=== PATIENT | male | born 1980 | race African-American/Black ===

== ENCOUNTER 2019-02-05 22:50 | Emergency (ER) | payer SELFPAY ==
[2019-02-05] MEDS ORDERED: TETANUS & DIPHTHERIA TOX,ADULT 0.5 ML VIAL ONE (23:17)
--- NOTE | 2019-02-05 23:18 | ER ---
Nurse's Notes [facility] Name: Justice Coy Age: 38 yrs Sex: Male : 1980 Arrival Date: 02/05/2019 Time: 22:53 Bed 14 Private MD: Diagnosis: Puncture wound without foreign body of foot Presentation: 02/05 22:56 Presenting complaint: Patient states: last 2018 , i was trying a boot \[employer] store when something punctured my left foot. Transition of care: patient was not received from another setting of care. Onset of symptoms was February 03, 2019. Risk Assessment: Do you want to hurt yourself or someone else? Patient reports no desire to harm self or others. Initial Sepsis Screen: Does the patient meet any 2 criteria? No. Patient's initial sepsis screen is negative. Does the patient have a suspected source of infection? No. Patient's initial sepsis screen is negative. Care prior to arrival: None. 22:56 Method Of Arrival: Ambulatory mg2 22:56 Acuity: CRISTINE 4 mg2 Triage Assessment: 23:10 General: Appears in no apparent distress. comfortable, Behavior is calm, cooperative, rr5 appropriate for age. Historical: - Allergies: 22:59 No Known Allergies; mg2 - Home Meds: 22:59 None [Active]; mg2 - PMHx: 22:59 None; mg2 - PSHx: 22:59 None; mg2 - Immunization history:: Last tetanus immunization: not immunized Flu vaccine is not up to date. - Social history:: Smoking status: Patient uses tobacco products, 1 pck a week, Patient uses alcohol, weekly. Patient/guardian denies using street drugs, IV drugs. - Ebola Screening: : No symptoms or risks identified at this time. Screenin:00 Abuse screen: Denies threats or abuse. Denies injuries from another. Nutritional mg2 screening: No deficits noted. Tuberculosis screening: No symptoms or risk factors identified. 23:10 Fall Risk None identified. Total Graff Fall Scale indicates No Risk (0-24 pts). rr5 Assessment: 23:10 General: Appears in no apparent distress. comfortable, Behavior is calm, cooperative, rr5 appropriate for age. 23:10 Pain: Complains of pain in left foot Quality of pain is described as aching. Neuro: rr5 Level of Consciousness is awake, alert, obeys commands, Oriented to person, place, time, situation, Appropriate for age. Cardiovascular: Capillary refill < 3 seconds Patient's skin is warm and dry. Respiratory: Airway is patent Respiratory effort is even, unlabored, Respiratory pattern is regular, symmetrical. GI: No signs and/or symptoms were reported involving the gastrointestinal system. : No signs and/or symptoms were reported regarding the genitourinary system. EENT: No signs and/or symptoms were reported regarding the EENT system. Derm: Skin is intact, Skin temperature is warm Wound noted left foot Wound is punctured wound Reports i got punctured on my left foot. Musculoskeletal: Circulation, motion, and sensation intact. Capillary refill < 3 seconds. 23:35 Reassessment: Patient appears in no apparent distress at this time. Patient is alert, rr5 oriented x 3, equal unlabored respirations, skin warm/dry/pink. discharge instruction given and explained without complaints made. verbalized understading. Vital Signs: 23:00 BP 146 / 105; Pulse 95; Resp 18; Temp 98.6; Pulse Ox 99% on R/A; Weight 79.38 kg; mg2 Height 5 ft. 9 in. (175.26 cm); Pain 5/10; 23:35 BP 137 / 75; Pulse 90; Resp 17; Pulse Ox 98% on R/A; rr5 23:00 Body Mass Index 25.84 (79.38 kg, 175.26 cm) mg2 ED Course: 22:53 Patient arrived in ED. cl3 22:58 Rani Coy FNP-C is [facility]. kb 22:58 Omid Kelley MD is Attending Physician. kb 22:58 Triage completed. mg2 23:00 Arm band placed on. mg2 23:10 Patient has correct armband on for positive identification. Bed in low position. Call rr5 light in reach. 23:14 Baljinder Andrea RN is Primary Nurse. rr5 23:35 No provider procedures requiring assistance completed. Patient did not have IV access rr5 during this emergency room visit. Administered Medications: 23:19 Drug: Tetanus-Diphtheria Toxoid Adult 0.5 ml {[employer] Trimmer: [employer]. Exp: rr5 07/23/2020. Lot #: [id number]. } Route: IM; Site: left deltoid; 23:35 Follow up: Response: Medication administered at discharge. rr5 Outcome: 23:17 Discharge ordered by MD. gonzalez 23:35 Discharged to home ambulatory. rr5 23:35 Condition: stable 23:35 Discharge instructions given to patient, Instructed on discharge instructions, follow up and referral plans. Demonstrated understanding of instructions, follow-up care. 23:36 Patient left the ED. rr5 Signatures: Rani Coy, [facility]Colin Dupont RN RN mg2 Baljinder Andrea RN RN rr5 Sebastián Olmedo cl3
--- NOTE | 2019-02-05 23:19 | EDPHYS ---
Physician Documentation [facility] Name: Justice Coy Age: 38 yrs Sex: Male : 1980 Arrival Date: 02/05/2019 Time: 22:53 Bed 14 Private MD: YANICK Physician Omid Kelley HPI: 02/05 23:09 This 38 yrs old Black Male presents to ER via Ambulatory with complaints of Puncture kb Wound To Foot. 23:09 The patient presents with a puncture wound, security sensor. The complaints affect the kb left foot. Context: The problem was sustained at a store, the patient can fully bear weight, the patient is able to ambulate. Onset: The symptoms/episode began/occurred 2 day(s) ago. Modifying factors: The symptoms are alleviated by nothing, the symptoms are aggravated by nothing. Associated signs and symptoms: The patient has no apparent associated signs or symptoms. Severity of symptoms: At their worst the symptoms were very mild, in the emergency department the symptoms are unchanged. The patient has not experienced similar symptoms in the past. The patient has not recently seen a physician. Pt reports he was trying on a boot at the store and there was a security sensor in there that punctured his heel. Came in because he was told he probably needed a tetanus shot. Historical: - Allergies: 22:59 No Known Allergies; mg2 - Home Meds: 22:59 None [Active]; mg2 - PMHx: 22:59 None; mg2 - PSHx: 22:59 None; mg2 - Immunization history:: Last tetanus immunization: not immunized Flu vaccine is not up to date. - Social history:: Smoking status: Patient uses tobacco products, 1 pck a week, Patient uses alcohol, weekly. Patient/guardian denies using street drugs, IV drugs. - Ebola Screening: : No symptoms or risks identified at this time. ROS: 23:06 Constitutional: Negative for fever, chills, and weight loss, ENT: Negative for injury, kb pain, and discharge, Neck: Negative for injury, pain, and swelling, Cardiovascular: Negative for chest pain, palpitations, and edema, Respiratory: Negative for shortness of breath, cough, wheezing, and pleuritic chest pain, Abdomen/GI: Negative for abdominal pain, nausea, vomiting, diarrhea, and constipation, Back: Negative for injury and pain, MS/Extremity: Negative for injury and deformity, Neuro: Negative for headache, weakness, numbness, tingling, and seizure. 23:06 Skin: Positive for puncture, of the heel of left foot. Exam: 23:06 Constitutional: This is a well developed, well nourished patient who is awake, alert, kb and in no acute distress. Head/Face: Normocephalic, atraumatic. Chest/axilla: Normal chest wall appearance and motion. Nontender with no deformity. No lesions are appreciated. Cardiovascular: Regular rate and rhythm with a normal S1 and S2. No gallops, murmurs, or rubs. Normal PMI, no JVD. No pulse deficits. Respiratory: Lungs have equal breath sounds bilaterally, clear to auscultation and percussion. No rales, rhonchi or wheezes noted. No increased work of breathing, no retractions or nasal flaring. Abdomen/GI: Soft, non-tender, with normal bowel sounds. No distension or tympany. No guarding or rebound. No evidence of tenderness throughout. MS/ Extremity: Pulses equal, no cyanosis. Neurovascular intact. Full, normal range of motion. Neuro: Awake and alert, GCS 15, oriented to person, place, time, and situation. Cranial nerves II-XII grossly intact. Motor strength 5/5 in all extremities. Sensory grossly intact. Cerebellar exam normal. Normal gait. 23:06 Skin: injury, puncture(s), that are superficial, of the heel of left foot. Vital Signs: 23:00 BP 146 / 105; Pulse 95; Resp 18; Temp 98.6; Pulse Ox 99% on R/A; Weight 79.38 kg; mg2 Height 5 ft. 9 in. (175.26 cm); Pain 5/10; 23:35 BP 137 / 75; Pulse 90; Resp 17; Pulse Ox 98% on R/A; rr5 23:00 Body Mass Index 25.84 (79.38 kg, 175.26 cm) mg2 MDM: 22:58 Patient medically screened. kb 23:06 Data reviewed: vital signs, nurses notes. Data interpreted: Pulse oximetry: on room air kb is 99 %. Interpretation: normal. Counseling: I had a detailed discussion with the patient and/or guardian regarding: the historical points, exam findings, and any diagnostic results supporting the discharge/admit diagnosis, the need for outpatient follow up, a family practitioner, to return to the emergency department if symptoms worsen or persist or if there are any questions or concerns that arise at home. Administered Medications: 23:19 Drug: Tetanus-Diphtheria Toxoid Adult 0.5 ml {[employer] Head: [employer]. Exp: rr5 07/23/2020. Lot #: [id number]. } Route: IM; Site: left deltoid; 23:35 Follow up: Response: Medication administered at discharge. rr5 Disposition: 02/06 15:20 Co-signature as Attending Physician, Omid Kelley MD I agree with the assessment and sandra plan of care. Disposition: 02/05/19 23:17 Discharged to Home. Impression: Puncture wound without foreign body of foot. - Condition is Stable. - Discharge Instructions: Puncture Wound, [id number]. - Medication Reconciliation Form, Thank You Letter, Antibiotic Education, Prescription Opioid Use form. - Follow up: Emergency Department; When: As needed; Reason: Worsening of condition. Follow up: Private Physician; When: 2 - 3 days; Reason: Recheck today's complaints, Continuance of care, Re-evaluation by your physician. Signatures: Rani Coy, LOSS PREVENTION ASSOCIATE-C LOSS PREVENTION ASSOCIATE-Omid Escalante MD MD cha Gardose, Michele, Baljinder Grimm RN, RN RN rr5 Corrections: (The following items were deleted from the chart) 02/05 23:36 23:17 02/05/2019 23:17 Discharged to Home. Impression: Puncture wound without foreign rr5 body of foot. Condition is Stable. Forms are Medication Reconciliation Form, Thank You Letter, Antibiotic Education, Prescription Opioid Use. Follow up: Emergency Department; When: As needed; Reason: Worsening of condition. Follow up: Private Physician; When: 2 - 3 days; Reason: Recheck today's complaints, Continuance of care, Re-evaluation by your physician. kb
[2019-02-06 00:43] VITALS: BP 146/105; TEMP 98.6; O2SAT 99
== END 2019-02-05 23:36 | disposition home or self-care (01) ==
LOC: ER 22:50
DX: S91.332A Puncture wound without foreign body, left foot, initial encounter (principal); W26.8XXA Contact with other sharp object(s), not elsewhere classified, initial encounter; Y93.89 Activity, other specified; Y92.512 Supermarket, store or market as the place of occurrence of the external cause; Z23 Encounter for immunization
CPT/HCPCS: 90471; 90714; 99283